=== PATIENT | female | born 1995 | race Caucasian/White ===

== ENCOUNTER 2017-05-07 05:31 | Emergency (ER) | payer SELFPAY ==
--- NOTE | ~2017-05-07 | ER ---
ADMIT: 05/07/2017 RM/LOC: ER [facility] MR#: [id number] [place], [place] [id number] JEANNIE PFEIFFER [address] [place] [address] Emergency Room Report SEX: F AGE: 21 : 1995 DATE: 05/07/2017 ADDENDUM: A 21-year-old female, comes in with 2 hours of right flank pain. It is severe in nature, she has never had pain like this before, and she has had associated nausea and vomiting. On examination, she is obese and it is tough to get a great exam, but she has diffuse right-sided abdominal pain primarily between the right upper and right lower quadrants and some mild flank pain. She does appear quite uncomfortable and diaphoretic initially. She was given some IV pain medication, started with morphine, then Dilaudid and Toradol. She received a liter of normal saline here. Urinalysis showed 2+ blood, and negative urine . Chemistries are normal and CBC showed a white count of 10.5, otherwise unremarkable. CT of abdomen and pelvis showed 2 mm right UVJ stone with hydronephrosis. She is discharged home on [place] and Flomax, to follow up with Dr. Miller if her symptoms do not completely resolve. DIAGNOSIS: Right ureterolithiasis. Samm Aguilera MD/ masoud JOB #: [id number] CC: Samm Aguilera MD, Attending Physician
== END 2017-05-07 07:38 | disposition home or self-care (01) ==
LOC: ER 05:31
DX: N13.2 Hydronephrosis with renal and ureteral calculous obstruction (principal); Z98.890 Other specified postprocedural states